=== PATIENT | male | born 1955 | race Caucasian/White ===

== ENCOUNTER 2020-05-19 23:03 | Emergency (ER) | payer MEDICARE, OTHER ==
[2020-05-20 01:36] LABS: BASOPHIL 0.1 % (0-2); EOSINOPHIL 0.1 % (0-5); HCT 29.9 % (42.0-52.0); HGB 9.5 g/dl (13.2-18.0); LYMPHOCYTE 1.7 % (15-48); MCH 31.5 pg (25.0-31.0); MCHC 31.8 g/dL (32.0-36.0); MONOCYTE 5.4 % (0-12); NEUTROPHIL 92.2 % (41-80); NRBC 0; PLT 131 K/uL (150-400); RBC 3.02 M/uL (4.70-6.00); RDW 14.1 % (11.5-14.0); WBC 8.6 K/uL (4.0-10.5)
[2020-05-20 01:46] LABS: BILIRUBIN NEGATIVE (NEGATIVE); BLOOD 2+ Ery/uL (NEGATIVE); CLARITY CLEAR (CLEAR); COLOR YELLOW (YELLOW); GLUCOSE (U) NORMAL (NORMAL); LEUKOCYTES 2+ Leu/uL (NEGATIVE); NITRITE POSITIVE (NEGATIVE); PROTEIN 1+ mg/dL (NEGATIVE); UROBILINOGEN 0.2 mg/dL (0.2-1.0); pH 5.5 (5.0-9.0)
[2020-05-20 01:52] LABS: LACTIC ACID 0.9 mmol/L (0.4-1.9)
[2020-05-20 01:54] LABS: ALBUMIN 2.4 g/dL (3.4-5.0); BILIRUBIN - TOTAL 0.3 mg/dL (0.2-1.0); CREATININE 1.47 mg/dL (0.67-1.17); GLOBULIN (CALCULATION) 5.1 g/dL; POTASSIUM 3.9 mmol/L (3.5-5.1); TOTAL PROTEIN 7.5 g/dL (6.4-8.2)
[2020-05-20 02:00] LABS: BACTERIA 2+; MUCOUS TRACE; URINARY RBC RARE; URINARY WBC TNTC
[2020-05-20 02:18] LABS: CORONAVIRUS 2019 SARS-COV-2 NEGATIVE (NEGATIVE); INFLUENZA A NAA NEGATIVE (NEGATIVE)
== END 2020-05-20 05:06 | disposition home or self-care (01) ==
LOC: FER 23:03
PROVIDERS: Emergency Medicine
DX: N39.0 Urinary tract infection, site not specified (principal); R79.89 Other specified abnormal findings of blood chemistry; F20.9 Schizophrenia, unspecified; F31.9 Bipolar disorder, unspecified; E07.9 Disorder of thyroid, unspecified; G89.29 Other chronic pain; E11.9 Type 2 diabetes mellitus without complications; Z20.822 Contact with and (suspected) exposure to COVID-19; Z95.0 Presence of cardiac pacemaker; Z90.49 Acquired absence of other specified parts of digestive tract; Z79.899 Other long term (current) drug therapy; Z79.4 Long term (current) use of insulin
CPT/HCPCS: 36415; 36600; 71045; 80053; 81001; 82150; 82803; 83605; 84145; 84484; 85025; 87040; 87077; 87088; 87186; 93005; J7030; U0002